=== PATIENT | male | born 1960 | race Caucasian/White ===

== ENCOUNTER 2017-05-07 03:23 | Emergency (ER) | payer MEDICARE ==
[2017-05-07 03:39] VITALS: BP 150/104
[2017-05-07] MEDS ORDERED: CEPHALEXIN MONOHYDRATE 250 MG CAPSULE ONE (03:50)
[2017-05-07] MEDS ORDERED: CEPHALEXIN MONOHYDRATE 250 MG CAPSULE PO ONE (03:58)
--- NOTE | 2017-05-07 03:58 | ERNOTE ---
Integumentary HPI - Narrative Date of Service: 05/07/17 - General Presenting Symptoms: rash, insect bite Time Seen by Provider: 05/07/17 03:49 Source: patient Exam Limitations: no limitations - Immun/Allergies/Home Medications Immunizations: IMMUNIZATION HX Immunizations Up to Date Yes History of Influenza Vaccine Yes Hx Pneumococcal Vaccination No Allergies/Adverse Reactions: Allergies Allergy/AdvReac Type Severity Reaction Status Date / Time No Known Drug Allergies Allergy Verified 05/07/17 03:40 Home Medications: HOME MEDICATIONS Carvedilol [Coreg] 12.5 mg PO BID 05/07/17 [Last Taken Unknown] Cephalexin Monohydrate [Keflex] 500 mg PO QID #40 cap 05/07/17 [Last Taken Unknown] Lisinopril 05/07/17 [Last Taken Unknown] Tadalafil [Cialis] 5 mg PO DAILY 05/07/17 [Last Taken Unknown] - Pain Pain Score: 2 - History of Present Illness Narrative: patient extremely anxious 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: Reports: generalized Quality: Reports: itching, painful Severity: moderate Exposure: Reports: insect bite/spider Modifying Factors - (Improves): Reports: nothing Modifying Factors - (Worsens): Reports: scratching Associated Symptoms: Reports: blisters, rash Review of Systems - Narrative Narrative: unremarkable - Review of Systems Constitutional: Present: See HPI EYE: Present: no symptoms reported ENT: Present: no symptoms reported Respiratory: Present: no symptoms reported Cardiology: Present: no symptoms reported Gastrointestinal/Abdominal: Present: no symptoms reported Genitourinary: Present: no symptoms reported Musculoskeletal: Present: no symptoms reported Skin: Present: no symptoms reported Neurological: Present: no symptoms reported Endocrine: Present: no symptoms reported Hematologic/Lymphatic: Present: no symptoms reported Psych: Present: no symptoms reported - Patient's Past Medical History Patient History - Medical: Cataracts, Depression, Obesity Patient History - Cardiac/Respiratory: No pertinent hx Patient History - Cancer: No Hx of Cancer Patient History - Surgical Procedures: Noncontributory, Other Patient History - Other: None - Family History Family History:: no untoward family reactions to anesthesia, no familial bleeding tendencies, no family history of clotting disorders, no family history of premature - Social History Living Situations: alone Psych History: No pertinent hx Smoking Status: Former smoker Have you smoked in the past 12 months: No Do you dip or chew tobacco: No Smoking Stop Date: 04/18/09 Patient requests Smoking Cessation Consult: No Initiate information on Smoking Cessation: No Alcohol Use: occasionally Drug Use: none - Immunizations Immunizations Up to Date: Yes Hx Pneumococcal Vaccination: No History of Influenza Vaccine: Yes Physical Exam - Physical Exam General Appearance: Present: moderate distress, anxious Head Exam: Present: normal inspection, no evidence of injury Eye Exam: Normal inspection: bilateral, PERRL: bilateral, EOMI: bilateral Ears, Nose, Throat: Present: normal ENT inspection Neck: Present: normal inspection, nontender Respiratory: Present: no respiratory distress, normal breath sounds, no accessory muscle use, chest nontender, lungs clear Cardiovascular/Chest: Present: regular rate, rhythm, no murmur, normal peripheral pulses Peripheral Pulses: N=norm/S=strong/W=weak/B=bound/A=absent: Carotid (R): Normal , Carotid (L): Normal, Radial (R): Normal, Radial (L): Normal, Femoral (R): Normal, Femoral (L): Normal, Dorsalis-pedis (R): Normal, Dorsalis-pedis (L): Normal Gastrointestinal/Abdominal: Present: normal bowel sounds, nontender, nondistended, soft, no organomegaly Back Exam: Present: normal inspection, normal range of motion, no CVA tenderness , no vertebral tenderness Extremity Exam: Present: other - excoriiaated insect bites on arms legs and torso DTR: N=norm/NB=norm/brisk/A=abs/DD=dull/dimin/HC=hyperactive: Bicep (R): Normal , Bicep (L): Normal, Tricep (R): Normal, Tricep (L): Normal, Knee (R): Normal, Knee (L): Normal, Ankle (R): Normal, Ankle (L): Normal Skin Exam: Present: normal color, warm/dry Lymphatic Exam: Present: no adenopathy ED Progress - Date and Time Seen: Date and Time: 05/07/17 03:55 unchanged - Vital Signs Patient's Vital Signs:: I have reviewed the patient's vital signs. Vital Signs: Vital Signs 05/07/17 03:27 Temperature 36.9 C Pulse Rate 110 H Respiratory 18 Rate Blood Pressure 150/104 O2 Sat by Pulse 95 Oximetry - Progress/Reassessment Chief Complaint: Insect Bite Progress:: Unchanged - Transfer of Care Expected Disposition: Discharge Plan - Plan Plan: to be discharged to f/u with dermatology Departure Clinical Impression: Insect bite - Departure Disposition: Home self-care Condition: Fair Instructions: Personal Hygiene, Insect Bite Prescriptions: Cephalexin Monohydrate [Keflex] 500 mg PO QID #40 cap
== END 2017-05-07 04:10 | disposition home or self-care (01) ==
LOC: ER 03:23
DX: S40.862A Insect bite (nonvenomous) of left upper arm, initial encounter; S80.861A Insect bite (nonvenomous), right lower leg, initial encounter; S40.861A Insect bite (nonvenomous) of right upper arm, initial encounter; Z87.891 Personal history of nicotine dependence; S80.862A Insect bite (nonvenomous), left lower leg, initial encounter; W57.XXXA Bitten or stung by nonvenomous insect and other nonvenomous arthropods, initial encounter